=== PATIENT | female | born 1975 | race Caucasian/White ===

== ENCOUNTER 2016-11-17 08:58 | Emergency (ER) | payer MEDICAID, OTHER ==
[~2016-11-17] VITALS: Wt 62.7 kg
--- NOTE | 2016-11-17 09:23 | ERD ---
ER Documentation Chief Complaint Date/Time DATE: 11/17/16 TIME: 09:19 Chief Complaint intermittent irreg vag bleeding no dysuria. unk hcg. no ap or n/v HPI This is a 41-year-old female presenting to emergency department with irregular vaginal bleeding 1 week. Month. Patient states her last menstrual period was 10/16/2016 and after this menstrual period she developed irregular vaginal bleeding. Patient states she uses a control patch. Patient states she put patch on and then developed irregular bleeding then remove patch and has had irregular vaginal bleeding since then. Denies dysuria or hematuria. No urinary urgency. Patient states she does have urinary frequency however states that she drinks a lot of water. Patient denies any abdominal pain, pelvic cramping. No nausea or vomiting. No diarrhea or constipation. ROS All systems reviewed and are negative except as per history of present illness. Medications Home Meds Active Scripts Nitrofurantoin Monohyd Macrocr* (Macrobid*) 100 Mg Capsr, 100 MG PO BID for 5 Days, CAP Prov:MELANIE MONREAL NP 11/17/16 Physical Exam Vitals Vital Signs Date Time Temp Pulse Resp B/P Pulse Ox O2 Delivery O2 Flow Rate FiO2 11/17/16 09:01 98.0 82 21 132/81 98 Physical Exam Const: Alert, no acute distress Head: Atraumatic Eyes: Normal Conjunctiva ENT: Normal External Ears, Nose and Mouth. Neck: Full range of motion..~ No meningismus. Resp: Clear to auscultation bilaterally Cardio: Regular rate and rhythm, no murmurs Abd: Soft, non tender, non distended. Normal bowel sounds. No suprapubic tenderness. Negative Bonilla sign Skin: No petechiae or rashes Back: No midline or flank tenderness. No CVA tenderness Ext: No cyanosis, or edema Neur: Awake and alert Psych: Normal Mood and Affect Result Diagram: 11/17/1692411/17/16924 Results 24 hrs Laboratory Tests Test 11/17/16 09:25 11/17/16 09:40 White Blood Count 7.910^3/ul Red Blood Count 4.8110^6/ul Hemoglobin 12.7g/dl Hematocrit 40.5% Mean Corpuscular Volume 84.2fl Mean Corpuscular Hemoglobin 26.4pg Mean Corpuscular Hemoglobin Concent 31.4g/dl Red Cell Distribution Width 13.2% Platelet Count 67220^3/UL Mean Platelet Volume 10.0fl Neutrophils % 58.3% Lymphocytes % 32.2% Monocytes % 7.2% Eosinophils % 1.9% Basophils % 0.3% Nucleated Red Blood Cells % 0.0/100WBC Neutrophils # (Manual) 4.610^3/ul Lymphocytes # 2.610^3/ul Monocytes # 0.610^3/ul Eosinophils # 0.210^3/ul Basophils # 0.010^3/ul Nucleated Red Blood Cells # 0.010^3/ul Sodium Level 144mmol/L Potassium Level 4.3mmol/L Chloride Level 107mmol/L Carbon Dioxide Level 24mmol/L Anion Gap 17 Blood Urea Nitrogen 12mg/dl Creatinine 0.56mg/dl Glucose Level 100mg/dl Calcium Level 9.1mg/dl Urine Color YELLOW Urine Clarity SLIGHTLY CLOUDY Urine pH 5.0 Urine Specific [place] 1.010 Urine Ketones NEGATIVEmg/dL Urine Nitrite NEGATIVEmg/dL Urine Bilirubin NEGATIVEmg/dL Urine Urobilinogen NEGATIVEmg/dL Urine Leukocyte Esterase TRACELeu/ul Urine Microscopic RBC 6/HPF Urine Microscopic WBC 7/HPF Urine Squamous Epithelial Cells FEW/HPF Urine Bacteria FEW/HPF Urine Hemoglobin 3+mg/dL Urine Glucose NEGATIVEmg/dL Urine Total Protein NEGATIVEmg/dl Procedures/[place] [id number] Radiology Main Line: [phone] DIAGNOSTIC IMAGING REPORT Patient: TRISTON CARREON : 1975 Age: 41 Sex: F [id number] DOS: 11/17/16 0916 Ordering MD: MELANIE MONREAL NP Location: E Room/Bed: PROCEDURE: US Pelvis CLINICAL INDICATION: Vaginal bleeding TECHNIQUE: Sonographic evaluation of the pelvis was performed utilizing both transabdominal and transvaginal technique. Curved array transabdominal transducer technique as well as a high frequency endovaginal probe was utilized. Images were reviewed on the high-resolution PACS workstation. COMPARISON: No prior studies are available for comparison. FINDINGS: The uterus is normal in size, echogenicity, and morphology measuring 9.0 x 4.6 x 4.3 cm in dimension. The uterus is anteverted in normal position. The endometrium measures x in diameter. The normal trilaminar stripe of the endometrium is preserved. The right ovary measures 3.3 x 1.9 x 2.5 cm in dimension. A small 1.8 cm right paraovarian cyst is identified, benign in appearance. The left ovary measures 2.6 x 1.1 x 1.7 cm in dimension. The ovaries are symmetric in size, echogenicity, and morphology. There are no adnexal masses. There is no significant free fluid in the pelvis. No other incidental abnormality is identified. IMPRESSION: 1. Small right paraovarian simple cyst. 2. Otherwise, unremarkable pelvic ultrasound. MDM: This is a 41-year-old female presenting to emergency department with irregular vaginal bleeding 1 month. Patient states she uses control patches for the past 1-1/2 years. Patient states she applied her last patch 1 day after her last menstrual period and since then she continues to have irregular bleeding. UA and urine were ordered. CBC and BMP were ordered. Pelvic ultrasound ordered. Labs showed no significant anemia or infection. UA shows 3+ hemoglobin, urine WBCs 7 and trace leukocyte Estrace. Urine is negative. Pelvic US reviewed by radiologist as small right paraovarian simple cyst. Patient is afebrile upon arrival to ED and vital signs are stable. Patient is alert and oriented throughout ED visit. Patient appears in no acute distress. Low suspicion for ovarian torsion, tubo-ovarian abscess, ectopic or normal . Patient likely has ovarian cyst and possible UTI. Patient will be given antibiotics for possible UTI. Patient is appropriate for outpatient management and will be given prescription for Macrobid. Patient to follow-up with primary care provider in the next 2-3 days for reassessment. Return to ED for any high fever, chest pain, difficulty breathing, shortness breath, wheezing, vomiting, diarrhea, abdominal pain or any new or worsening symptoms. Patient verbalizes understanding. All questions answered at discharge. Disclaimer: Inadvertent spelling and grammatical errors are likely due to EHR/ dictation software use and do not reflect on the overall quality of patient care. Also, please note that the electronic time recorded on this note does not necessarily reflect the actual time of the patient encounter. Departure Diagnosis: Primary Impression: Vaginal bleeding Additional Impressions: Ovarian cyst Laterality: right Qualified Code: N83.201 - Cyst of right ovary UTI (urinary tract infection) Urinary tract infection type: acute cystitis Hematuria presence: with hematuria Qualified Code: N30.01 - Acute cystitis with hematuria Condition: Stable MELANIE MONREAL NP Nov 17, 2016 09:23
[2016-11-17 09:50] LABS: HEMATOCRIT 40.5 % (37.0-47.0); HEMOGLOBIN 12.7 g/dl (12.0-16.0); RED BLOOD COUNT 4.81 10^6/ul (4.20-5.40); WHITE BLOOD COUNT 7.9 10^3/ul (4.8-10.8)
[2016-11-17 09:51] LABS: BASOPHILS % 0.3 % (0.0-2.0); EOSINOPHILS # 0.2 10^3/ul (0.0-0.5); EOSINOPHILS % 1.9 % (0.0-7.0); LYMPHOCYTES # 2.6 10^3/ul (0.8-2.9); LYMPHOCYTES % 32.2 % (15.0-51.0); MEAN CORPUSCULAR HEMOGLOBIN 26.4 pg (29.0-33.0); MEAN CORPUSCULAR HGB CONC 31.4 g/dl (32.0-37.0); MEAN CORPUSCULAR VOLUME 84.2 fl (82.0-101.0); MONOCYTE # 0.6 10^3/ul (0.3-0.9); MONOCYTES % 7.2 % (0.0-11.0); NEUTROPHILS % 58.3 % (39.0-77.0); PLATELET COUNT 308 10^3/UL (140-415); RED CELL DISTRIBUTION WIDTH 13.2 % (11.5-14.5)
[2016-11-17 10:06] LABS: ADD UMIC YES; UR ASCORBIC ACID NEGATIVE (NEGATIVE); UR BACTERIA FEW /HPF (NONE SEEN); UR BILIRUBIN (Dip) NEGATIVE (NEGATIVE); UR BLOOD (Dip) 3+ mg/dL (NEGATIVE); UR CLARITY SLIGHTLY CLOUDY (CLEAR); UR COLOR YELLOW (YELLOW); UR GLUCOSE (Dip) NEGATIVE (NEGATIVE); UR KETONES (Dip) NEGATIVE (NEGATIVE); UR LEUKOCYTE ESTERASE (Dip) TRACE Leu/ul (NEGATIVE); UR NITRITE (Dip) NEGATIVE (NEGATIVE); UR RBC 6 /HPF (0-5); UR SQUAMOUS EPITHELIAL CELL FEW /HPF (FEW); UR TOTAL PROTEIN (Dip) NEGATIVE (NEGATIVE); UR UROBILINOGEN (Dip) NEGATIVE (NEGATIVE)
[2016-11-17 10:07] LABS: CALCIUM 9.1 mg/dl (8.4-10.2); CREATININE 0.56 mg/dl (0.44-1.00); POTASSIUM 4.3 mmol/L (3.5-5.1)
--- NOTE | 2016-11-17 10:28 | RADRPT ---
PROCEDURE: US Pelvis CLINICAL INDICATION: Vaginal bleeding TECHNIQUE: Sonographic evaluation of the pelvis was performed utilizing both transabdominal and tr ansvaginal technique. Curved array transabdominal transducer technique as well as a high frequency endovaginal probe was utilized. Images were reviewed on the high-resolution PACS workstation. COMPARISON: No prior studies are available for comparison. FINDINGS: The uterus is normal in size, echogenicity, and morphology measuring 9.0 x 4.6 x 4.3 cm in dimension . The uterus is anteverted in normal position. The endometrium measures x in diameter. The jennyfer l trilaminar stripe of the endometrium is preserved. The right ovary measures 3.3 x 1.9 x 2.5 cm in dimension. A small 1.8 cm right paraovarian cyst is identified, benign in appearance. The left ovary measures 2.6 x 1.1 x 1.7 cm in dimension. The ova jorge are symmetric in size, echogenicity, and morphology. There are no adnexal masses. There is no significant free fluid in the pelvis. No other incidental abnormality is identified. IMPRESSION: 1. Small right paraovarian simple cyst. 2. Otherwise, unremarkable pelvic ultrasound. RPTAT: PP .Chas Taveras MD, Date Time Electronically viewed and signed by .Chas Taveras MD, MD on 11/17/2016 10:27 .B/
[2016-11-17] MEDS ORDERED: NITR-58 PO (10:49)
== END 2016-11-17 11:17 | disposition home or self-care (01) ==
LOC: FTE 08:58
DX: N93.8 Other specified abnormal uterine and vaginal bleeding (principal); N83.201 Unspecified ovarian cyst, right side; N30.01 Acute cystitis with hematuria
CPT/HCPCS: 76830; 76856; 80048; 81001; 85025; Z7502